=== PATIENT | male | born 1975 | race Caucasian/White ===

== ENCOUNTER → 2018-03-13 09:27 | Outpatient (CLI) | payer OTHER, SELFPAY ==
[2018-03-13 11:15] VITALS: PULSE 77
[2018-03-13 11:22] LABS: Anion Gap 12.5 mEq/L (5-15); Blood Urea Nitrogen 17 mg/dL (7-18); Carbon Dioxide 27 mmol/L (21.0-32.0); Chloride 104 mmol/L (98-107); Chol/HDL Ratio 10.7 (1-3.5); Cholesterol 257 mg/dL (140-200); HDL Cholesterol 24 mg/dL (27-67); Sodium 139 mmol/L (136-145)
[2018-03-13 11:34] LABS: Calcium 7.9 mg/dL (8.5-10.1); Creatinine,Serum 0.96 mg/dL (0.70-1.30); Estimated Glomerular Filt Rate 85 ml/min (>60); GFR (African American) 103 ML/MIN (>60); Glucose 146 mg/dL (74-106)
[2018-03-13 11:35] LABS: Triglycerides 1413 mg/dL (30-200)
[2018-03-13 11:36] LABS: Potassium 4.5 mmoL/L (3.5-5.1)
== END ==
PROVIDERS: Visit Provider Internal Medicine Adolescent Medicine
DX: Z00.00 Encounter for general adult medical examination without abnormal findings (principal); R06.09 Other forms of dyspnea
CPT/HCPCS: 36415; 80048; 80061; 94060; 94640; 94726; 94729

== ENCOUNTER → 2018-03-23 07:47 | Outpatient (CLI) | payer OTHER, SELFPAY ==
--- NOTE | 2018-03-23 08:01 | CT_ITS ---
CT chest wo con HISTORY: Restrictive airway disease, shortness of breath, abnormal pulmonary function test, shortness of air, history of smoking ITS.REASON: RESTRICTIVE AIRWAY DISEASE ORDERING PHYSICIAN: Carson Bauer MD PATIENT AGE: 42 years COMPARISON: 09/03/[id number] (2) Technique: Axial images obtained with sagittal and coronal reformats. All CT scans at the facility use one or more dose reduction, viz: automated exposure control, ma/kV adjustment per patient size (including targeted exams where dose is matched to indication, i.e. head), or iterative reconstruction technique. FINDINGS: Study performed without contrast. There is diffuse small lymph nodes in the axilla mediastinum and francesco. No enlarged lymph nodes are evident. No mediastinal or hilar mass. There is normal heart size. No evidence of pericardial effusion There are centrilobular and paraseptal emphysematous changes with hyperinflation and mild bronchial thickening. No lobar consolidation or collapse Calcified granuloma is present in the left lower lobe. No interlobular septal thickening and apparent. The interstitium has an unremarkable appearance. There is minimal atelectatic or fibrotic change in the right middle lobe and lingula Upper abdominal images show fatty liver. There are a few small retroperitoneal lymph nodes. No acute bony anomalies. IMPRESSION: 1. Centrilobular and paraseptal emphysematous changes along with hyperinflation and bronchial thickening consistent with obstructive chronic bronchitis. No interstitial thickening 2. No acute findings.
== END ==
PROVIDERS: PCP Internal Medicine Adolescent Medicine; Visit Provider Internal Medicine Adolescent Medicine
DX: J98.4 Other disorders of lung (principal)
CPT/HCPCS: 71250

== ENCOUNTER → 2018-04-17 06:13 | Outpatient (CLI) | payer OTHER, SELFPAY ==
--- NOTE | 2018-04-17 07:37 | NM_ITS ---
SPECT MYOCARDIAL PERFUSION SCAN, REST AND STRESS: EXERCISE STRESS: [facility] REVIEW QGS EF AND WALL MOTION EVALUATION: QPS - PERFUSION EVALUATION: HISTORY: ANGINA PROCEDURE: Rest imaging performed after administration of10.12 millicuries Tc MIBI. Dose administered at31.8 a.m., with imaging thereafter. Stress imaging was then performed following9 minutes 30 seconds of exercise stress. The patient achieved a heart [id number] with projected heart rate of150 . Resting BP111/62 with stress 160/64. At maximum exercise stress,31.8 millicuries Tc MIBI administered at8:45 a.m. with [id number] minutes thereafter. FINDINGS: Perfusion Evaluation: The single slice spect images as well as the [facility] bull's-eye data summary were reviewed. Wall Motion and Ejection Fraction Evaluation: Gated SPECT review and analysis used to evaluate these features. There is a 67 % left ventricular ejection fraction. There seems to be good wall motion Patient had excellent exercise capacity with no EKG changes however did experience chest pressure rated as mild. Images reveal uniform myocardial activity with both stress and rest gated images calculated ejection fraction of 67% with normal wall motion IMPRESSION: No EKG evidence or scintigraphic evidence of myocardial ischemia with excellent exercise capacity in a patient who experienced mild chest discomfort with exercise. Normal ejection fraction normal wall motion. Critical correlation is advised
--- NOTE | 2018-04-17 09:40 | HMH.ITSHM ---
ASA ATORVASTATIN PROAIR
== END ==
PROVIDERS: PCP Internal Medicine Adolescent Medicine; Visit Provider Internal Medicine Adolescent Medicine
DX: I20.8 Other forms of angina pectoris (principal); J98.4 Other disorders of lung; R06.09 Other forms of dyspnea
CPT/HCPCS: 78452; 93017; A9502

== ENCOUNTER → 2018-05-06 07:52 | Outpatient (CLI) | payer OTHER, SELFPAY ==
[2018-05-06 09:49] LABS: Chol/HDL Ratio 4.8 (1-3.5); Cholesterol 150 mg/dL (140-200); HDL Cholesterol 31 mg/dL (27-67); LDL Cholesterol 86 mg/dL (0-130); Triglycerides 167 mg/dL (30-200); VLDL Cholesterol 33 mg/dL (0-40)
== END ==
PROVIDERS: PCP Internal Medicine Adolescent Medicine; Visit Provider Internal Medicine Adolescent Medicine
DX: E78.2 Mixed hyperlipidemia (principal)
CPT/HCPCS: 36415; 80061